=== PATIENT | male | born 1950 | race Caucasian/White ===

== ENCOUNTER 2020-11-22 17:23 | Inpatient (IN) | payer OTHER ==
[~2020-11-22] VITALS: Ht 177.8 cm; Wt 119.0 kg
[2020-11-22 17:47] LABS: BASOPHILS ABSOLUTE AUTO 0.05 K/mm3 (0.00-0.23); BASOPHILS PERCENT AUTO 1 % (0-2); EOSINOPHILS ABSOLUTE AUTO 0.33 K/mm3 (0.00-0.68); EOSINOPHILS PERCENT AUTO 4 % (0-6); Hematocrit 42.2 % (37.0-53.0); Hemoglobin 13.8 g/dL (13.5-17.5); IMMATURE GRAN ABSOLUTE AUTO 0.02 K/mm3 (0.00-0.10); IMMATURE GRAN PERCENT AUTO 0 % (0-1); LYMPHOCYTES ABSOLUTE AUTO 1.85 K/mm3 (0.84-5.20); LYMPHOCYTES PERCENT AUTO 25 % (21-46); MONOCYTES ABSOLUTE AUTO 0.48 K/mm3 (0.16-1.47); MONOCYTES PERCENT AUTO 6 % (4-13); Mean Corpuscular HGB Conc 32.7 g/dL (31.5-36.5); Mean Corpuscular Volume 95 fL (80-100); Mean Platelet Volume 10.2 fL (9.1-12.4); NEUTROPHILS ABSOLUTE AUTO 4.75 K/mm3 (1.96-9.15); NEUTROPHILS PERCENT AUTO 64 % (41-73); Platelet Count 200 K/mm3 (150-400); RDW Coefficient Variation 12.7 % (11.7-14.2); RDW Standard Deviation 44.6 fL (35.1-46.3); Red Blood Cell Count 4.45 M/mm3 (4.30-5.90); White Blood Cell Count 7.48 K/mm3 (4.00-11.30)
[2020-11-22] MEDS ORDERED: LISI5 PO (17:57)
[2020-11-22 18:04] LABS: Alanine Aminotransfer (ALT/SGP 60 U/L (12-78); Albumin, Blood 3.1 g/dL (3.4-5.0); Albumin/Globulin Ratio 0.8 (0.8-1.8); Alk Phos 68 U/L (50-136); Anion Gap 4 mmol/L (6-16); Aspartate Aminotrans (AST/SGOT 31 U/L (12-37); Bilirubin, Total 0.6 mg/dL (0.1-1.0); Blood Urea Nitrogen 10 mg/dL (8-24); Bun/Creatinine Ratio 11.6 (12.0-20.0); CO2, Blood 26 mmol/L (21-32); Calcium, Blood 8.8 mg/dL (8.5-10.1); Chloride, Blood 109 mmol/L (98-108); Creatinine, Blood 0.86 mg/dL (0.60-1.20); Globulin, Blood 3.7 g/dL (2.2-4.0); Glomerular Filtration Rate >60 (60-); Glucose, Blood 78 mg/dL (70-99); Potassium, Blood 4.3 mmol/L (3.5-5.5); Sodium, Blood 139 mmol/L (136-145); Total Protein, Blood 6.8 g/dL (6.4-8.2)
[2020-11-22 20:41] LABS: CHOL/HDL RATIO 3.6; Cholesterol 94 mg/dL (50-200); HDL Cholesterol 26 mg/dL (>39); LDL/HDL RATIO 1.9; Low Density Lipoprotein Chol 50 mg/dL (0-110); Triglycerides 89 mg/dL (30-160); Very Low Density Lipoprot Chol 17 mg/dL (6-32)
[2020-11-22 21:55] LABS: International Normalized Ratio 1.06; Prothrombin Time Results 11.4 Sec (9.7-11.5)
--- NOTE | 2020-11-23 05:20 | NUR ---
ADMIT NOTE AND SHIFT SUMMARY PT ARRIVED TO PCU FROM ED VIA ED STRETCHER AT APPROX 2300. PT AMBULATED FROM ED STRETCHER TO PCU BED INDEPENDENTLY. PT WAS ACCOMPANIED BY PT'S SON. PT A&OX4. SP02>92% ON RA. TELEMETRY READS NSR, HR 60'S. PT DENIED CP DURING THIS SHIFT. PT DID HAVE CRITICAL TROPONIN OF 2.11, TRENDING DOWN FROM PREVIOUS TROP. PT SBA TO BATHROOM TO VOID, USES CANE TO AMBULATE AT BASELINE D/T KNEE PAIN. HEPARIN INFUSED PER EMAR. PT DID NOT SLEEP MUCH DURING NIGHT. PT ORIENTED TO ROOM, CALL LIGHT. CALL LIGHT IN REACH. WILL GIVE REPORT TO ONCOMING NURSE.
[2020-11-23 11:27] LABS: SARS-Cov-2 (COVID-19) PCR, MMC NEGATIVE (NEGATIVE)
--- NOTE | 2020-11-23 12:15 | NUR ---
ECHO WAS COMPLETED, CT WAS COMPLETED, PT TAKEN TO BLOOD DONOR UNIT ASSISTANT FOR REE VIA BED.
--- NOTE | 2020-11-23 12:57 | NUR ---
Echocardiogram using 0.60ml of Definity contrast performed.
--- NOTE | 2020-11-23 14:33 | NUR ---
pt returned to room from component lab tech, recieved on stent to the mid LAD, tr band in place, is clear, pt verbalizes understanding to not use right hand, he is up to bathroom, gait steady, denies dizziness. vs stable. call light in reach.
--- NOTE | 2020-11-23 18:35 | NUR ---
TR band is deflated, will leave on another hr, then will remove, site is clear. no further changes this shift. call light in reach.
--- NOTE | 2020-11-24 06:18 | NUR ---
SHIFT SUMMARY PT A&OX4. SP02>92% ON RA. TELEMETRY READS SR W/ 1ST DEGREE HB. PT HAD TR BAND, DEFLATED BUT NOT REMOVED AT START OF SHIFT. R TR BAND REMOVED AT APPROX 1940. OPSITE APPLIED. SITE C/D/I, NO BLEEDING, BRUISING, HEMATOMA. ARM BOARD IN PLACE. PT INDEPENDENT IN ROOM, UP TO BATHROOM TO VOID. PT DENIED PAIN. SLEPT MOST OF NIGHT. CALL LIGHT IN REACH. WILL GIVE REPORT TO ONCOMING NURSE.
[2020-11-24] MEDS ORDERED: TICA90TA PO (12:34)
[2020-11-24] MEDS ORDERED: CARV3.125 PO (12:34)
[2020-11-24] MEDS ORDERED: LIPITOR80 MG PO (12:34)
[2020-11-24] MEDS ORDERED: ASPI81CH PO (12:34)
[2020-11-24] MEDS ORDERED: NITR.4SL SL (12:35)
--- NOTE | 2020-11-24 13:04 | NUR ---
PT DISCHARGED TO HOME TODAY, DISCHARGE INSTRUCTIONS PROVIDED POST ANGIO, PT TO FOLLOW UP WITH PCP AND INTEL[facility]UAL [facility], PT TO CONTINUE HOME MEDS AND NEW MEDS AT HOME. NO OTHER ISSUES PRIOR TO DISCHARGE, PT WAS SENT [facility] UPON REQUESTS. SON PROVIDED TRANSFORMATION. ALL BELONGINGS SENT WITH PT, ACCOMPANIED BY PCT UPON DISCHARGE
== END 2020-11-24 12:56 | disposition home or self-care (01) | DRG 246 ==
LOC: ER 17:23 → PCU 22:19
PROVIDERS: Emergency Medicine; ADMIT Family Medicine
PROC: 4A023N7 Measurement of Cardiac Sampling and Pressure, Left Heart, Percutaneous Approach (ICD-10-PCS; principal; 2020-11-23)
PROC: 027034Z Dilation of Coronary Artery, One Artery with Drug-eluting Intraluminal Device, Percutaneous Approach (ICD-10-PCS; 2020-11-23)
PROC: B2111ZZ Fluoroscopy of Multiple Coronary Arteries using Low Osmolar Contrast (ICD-10-PCS; 2020-11-23)
DX: I21.4 Non-ST elevation (NSTEMI) myocardial infarction (principal); I50.21 Acute systolic (congestive) heart failure; I23.6 Thrombosis of atrium, auricular appendage, and ventricle as current complications following acute myocardial infarction; Z20.822 Contact with and (suspected) exposure to COVID-19; I25.10 Atherosclerotic heart disease of native coronary artery without angina pectoris; I11.0 Hypertensive heart disease with heart failure; G89.29 Other chronic pain; I25.5 Ischemic cardiomyopathy; M17.12 Unilateral primary osteoarthritis, left knee; E66.9 Obesity, unspecified; R79.89 Other specified abnormal findings of blood chemistry; Z68.35 Body mass index [BMI] 35.0-35.9, adult; Z79.899 Other long term (current) drug therapy
CPT/HCPCS: 36415; 71045; 71260; 80053; 80061; 83880; 84145; 84484; 85025; 85347; 85379; 85610; 85730; 92978; 93005; 93010; 93454; 93571; 96374; 96376; 99152; 99153; 99285-25; A9270; C1725; C1753; C1769; C1874; C1887; C1894; C8929; C9600; J1644; J1940; J2250; J3010; J7030; J7050; Q9957; Q9967; U0004